=== PATIENT | female | born 1955 | race Caucasian/White ===

== ENCOUNTER → 2018-02-06 | Outpatient (CLI) | payer BC ==
--- NOTE | 2018-02-10 08:47 | MM ---
Reason for exam: screening (asymptomatic). Last mammogram was performed 2 years and 5 months ago. History: Patient is postmenopausal. Took estrogen for 1 year 10 months. Took progesterone for 1 year 10 months. Physical Findings: A clinical breast exam by your physician is recommended on an annual basis and results should be correlated with mammographic findings. MG Screening Mammo w CAD Bilateral CC and MLO view(s) were taken. Prior study comparison: September 01, 2015, bilateral MG screening mammo w CAD. January 07, 2014, bilateral MG screening mammo w CAD. There are scattered fibroglandular densities. Finding: There are typically benign stable circumscribed round masses in both breasts. No suspicious abnormality. No significant changes in finding since September 01, 2015 and January 07, 2014. ASSESSMENT: Benign, BI-RAD 2 RECOMMENDATION: Routine screening mammogram of both breasts in 1 year.
== END ==
LOC: RADMAMWWP 13:54
PROVIDERS: ATTEND Internal Medicine
DX: Z12.31 Encounter for screening mammogram for malignant neoplasm of breast (principal)
CPT/HCPCS: 77067

== ENCOUNTER → 2018-10-29 | Outpatient (CLI) | payer OTHER ==
--- NOTE | 2018-10-29 17:58 | XR ---
EXAMINATION TYPE: XR foot complete LT DATE OF EXAM: 10/29/2018 COMPARISON: NONE HISTORY: Pain in the toes TECHNIQUE: 3 views FINDINGS: Metatarsals appear intact. I see no fracture nor dislocation. The toes appear intact. Joint spaces are fairly normal. IMPRESSION: Negative left foot exam.
== END | disposition home or self-care (01) ==
LOC: RADXRMAIN 17:32
PROVIDERS: ATTEND Emergency Medicine
DX: S97.102A Crushing injury of unspecified left toe(s), initial encounter (principal); S91.205A Unspecified open wound of left lesser toe(s) with damage to nail, initial encounter

== ENCOUNTER → 2018-12-21 | Outpatient (CLI) | payer BC ==
--- NOTE | 2018-12-25 19:42 | ECHOF ---
Referral Reason:R01.1 heart murmur MEASUREMENTS -------- HEIGHT: 170.2 cm WEIGHT: 83.9 kg BP: RVIDd: 3.3 cm (< 3.3) IVSd: 1.2 cm (0.6 - 1.1) LVIDd: 3.4 cm (3.9 - 5.3) LVPWd: 1.2 cm (0.6 - 1.1) IVSs: 2.0 cm LVIDs: 1.6 cm LVPWs: 2.1 cm LAESV Index (A-L): 25.41 ml/m Ao Diam: 2.6 cm (2.0 - 3.7) AV Cusp: 1.5 cm (1.5 - 2.6) LA Diam: 3.7 cm (2.7 - 3.8) MV EXCURSION: 13.666 mm (> 18.000) MV EF SLOPE: 89 mm/s (70 - 150) EPSS: 0.3 cm MV E Austyn: 1.30 m/s MV DecT: 262 ms MV A Austyn: 0.79 m/s MV E/A Ratio: 1.65 AV maxP.42 mmHg AV meanP.91 mmHg RAP: 5.00 mmHg RVSP: 38.30 mmHg FINDINGS -------- Sinus rhythm. This was a technically adequate study. The left ventricular size is normal. There is mild concentric left ventricular hypertrophy. Overa ll left ventricular systolic function is normal with, an EF between 60 - 65 %. The diastolic fillin g pattern is normal for the age of the patient 20.87. The right ventricle is normal in size. Normal LA size by volume 22+/-6 ml/m2. The right atrial size is normal. Interatrial and interventricular septum intact. There is no evidence of aortic regurgitation. There is mild aortic stenosis present. Peak/mean gr adient across the Aortic Valve is 31.42mmHg / 18.91mmHg. Mild mitral regurgitation is present. Mild tricuspid regurgitation present. There is mild pulmonary hypertension. The right ventricular systolic pressure, as measured by Doppler, is 38.30mmHg. There is no pulmonic regurgitation present. The aortic root size is normal. Normal inferior vena cava with normal inspiratory collapse consistent with estimated right atrial pre ssure of 5 mmHg. There is no pericardial effusion. CONCLUSIONS -------- 1. Sinus rhythm. 2. This was a technically adequate study. 3. The left ventricular size is normal. 4. There is mild concentric left ventricular hypertrophy. 5. Overall left ventricular systolic function is normal with, an EF between 60 - 65 %. 6. The diastolic filling pattern is normal for the age of the patient 20.87 7. The right ventricle is normal in size. 8. Normal LA size by volume 22+/-6 ml/m2. 9. The right atrial size is normal. 10. Interatrial and interventricular septum intact. 11. There is no evidence of aortic regurgitation. 12. There is mild aortic stenosis present. 13. Peak/mean gradient across the Aortic Valve is 31.42mmHg / 18.91mmHg. 14. Mild mitral regurgitation is present. 15. Mild tricuspid regurgitation present. 16. There is mild pulmonary hypertension. 17. The right ventricular systolic pressure, as measured by Doppler, is 38.30mmHg. 18. There is no pulmonic regurgitation present. 19. The aortic root size is normal. 20. Normal inferior vena cava with normal inspiratory collapse consistent with estimated right atrial pressure of 5 mmHg. 21. There is no pericardial effusion. RECOVERER: Arianna Rider RDCS
== END | disposition home or self-care (01) ==
LOC: RADECHMAIN 16:12
PROVIDERS: ATTEND Internal Medicine
DX: Z53.9 Procedure and treatment not carried out, unspecified reason (principal)

== ENCOUNTER → 2020-10-16 | Outpatient (CLI) | payer BC ==
--- NOTE | 2020-10-17 11:02 | ECHOF ---
Referral Reason:R01.1 heart murmur MEASUREMENTS -------- HEIGHT: 170.2 cm WEIGHT: 87.1 kg BP: IVSd: 1.4 cm (0.6 - 1.1) LVIDd: 3.5 cm (3.9 - 5.3) LVPWd: 1.5 cm (0.6 - 1.1) IVSs: 1.5 cm LVIDs: 2.3 cm LVPWs: 1.8 cm LAESV Index (A-L): 28.92 ml/m Ao Diam: 2.5 cm (2.0 - 3.7) AV Cusp: 0.8 cm (1.5 - 2.6) LA Diam: 3.2 cm (2.7 - 3.8) MV EXCURSION: 14.967 mm (> 18.000) MV EF SLOPE: 45 mm/s (70 - 150) EPSS: 0.2 cm MV E Austyn: 0.66 m/s MV DecT: 267 ms MV A Austyn: 0.89 m/s MV E/A Ratio: 0.73 AV maxP.21 mmHg AV meanP.70 mmHg RAP: 5.00 mmHg RVSP: 32.02 mmHg FINDINGS -------- Sinus rhythm. This was a technically good study. The left ventricular size is normal. There is moderate concentric left ventricular hypertrophy. O verall left ventricular systolic function is normal with, an EF between 55 - 60 %. The diastolic fi lling pattern is normal for the age of the patient 11.39. The right ventricle is normal in size. Normal LA size by volume 22+/-6 ml/m2. The right atrial size is normal. There is cfmryrbg-vr-qpxhva aortic stenosis present. Peak/mean gradient across the Aortic Valve is 58.21mmHg / 32.70mmHg. Aortic valve is functionally bicuspid and is moderately thickened. The mitral valve leaflets are mildly thickened. Mild mitral regurgitation is present. The tricuspid valve appears structurally normal. Mild tricuspid regurgitation present. Right vent ricular systolic pressure is normal at < 35 mmHg. Trace/mild (physiologic) pulmonic regurgitation. The aortic root size is normal. There is no pericardial effusion. CONCLUSIONS -------- 1. There is moderate concentric left ventricular hypertrophy. 2. Overall left ventricular systolic function is normal with, an EF between 55 - 60 %. 3. Normal LA size by volume 22+/-6 ml/m2. 4. There is jxmnesqc-rp-tgddff aortic stenosis present. 5. Peak/mean gradient across the Aortic Valve is 58.21mmHg / 32.70mmHg. 6. Aortic valve is functionally bicuspid and is moderately thickened. 7. Mild mitral regurgitation is present. 8. Mild tricuspid regurgitation present. 9. Trace/mild (physiologic) pulmonic regurgitation. 10. There is no pericardial effusion. DESIGN ENGINEERING MANAGER: Latrice Parrish RDCS
== END | disposition home or self-care (01) ==
LOC: RADECHMAIN 13:57
PROVIDERS: ATTEND Internal Medicine
DX: I08.3 Combined rheumatic disorders of mitral, aortic and tricuspid valves (principal); I37.1 Nonrheumatic pulmonary valve insufficiency
CPT/HCPCS: 93306

== ENCOUNTER → 2021-02-16 | Outpatient (CLI) | payer BC | END | disposition home or self-care (01) | LOC: LABWHC1 12:58 | PROVIDERS: ATTEND Internal Medicine | DX: U07.1 COVID-19 (principal) | CPT/HCPCS: U0003; C9803; U0005 ==

== ENCOUNTER → 2023-08-28 | Outpatient (CLI) | payer MEDICARE ==
--- NOTE | 2023-08-28 17:50 | CA ---
Transthoracic Echo Report Name: Rashmi Martinez Age: 67 Gender: F : 1955 Exam Date: 08/28/2023 12:54 Exam Location: [facility] Ht (in): 67 Wt (lb): 204 Ordering Physician: Cyndi Blue MD Attending/Referring Phys: Branch Chief Tonia Benavides RDCS Procedure CPT: Indications: I350 NONRHEUMATIC AORTIC (VALVE) STENOSIS Cardiac Hx: Technical Quality: Good Contrast 1: Total Dose (mL): Contrast 2: Total Dose (mL): MEASUREMENTS (Male / Female) Normal Values 2D ECHO LV Diastolic Diameter PLAX 4.4 cm 4.2 - 5.9 / 3.9 - 5.3 cm LV Systolic Diameter PLAX 2.6 cm IVS Diastolic Thickness 1.4 cm 0.6 - 1.0 / 0.6 - 0.9 cm LVPW Diastolic Thickness 1.2 cm 0.6 - 1.0 / 0.6 - 0.9 cm LV Relative Wall Thickness 0.6 LVOT Diameter 2.1 cm LV Diastolic Volume MOD BP 120.4 cm??? 67 - 155 / 56 - 104 cm??? LV Systolic Volume MOD BP 39.5 cm??? 22 - 58 / 19 - 49 cm??? LV Ejection Fraction MOD BP 67.2 % >= 55 % LV Cardiac Index MOD BP 2821.1 cm???/min???m??? LV Diastolic Volume MOD 4C 93.6 cm??? LV Systolic Volume MOD 4C 36.5 cm??? LV Ejection Fraction MOD 4C 61.0 % LV Cardiac Index MOD 4C 1990.3 cm???/min???m??? LV Diastolic Length 4C 8.5 cm LV Systolic Length 4C 7.7 cm LV Diastolic Volume MOD 2C 151.9 cm??? LV Systolic Volume MOD 2C 37.3 cm??? LV Ejection Fraction MOD 2C 75.5 % LV Cardiac Index MOD 2C 3997.5 cm???/min???m??? LV Diastolic Length 2C 8.7 cm LV Systolic Length 2C 6.7 cm LA Volume 70.2 cm??? 18 - 58 / 22 - 52 cm??? LA Volume Index 33.1 cm???/m??? 16 - 28 cm???/m??? Ascending Aorta Diameter 3.9 cm DOPPLER AV Peak Velocity 425.1 cm/s AV Peak Gradient 72.3 mmHg AV Mean Velocity 303.6 cm/s AV Mean Gradient 41.7 mmHg AV Velocity Time Integral 100.8 cm LVOT Peak Velocity 108.1 cm/s LVOT Peak Gradient 4.7 mmHg LVOT Velocity Time Integral 25.5 cm LVOT Stroke Volume 88.2 cm??? LVOT Stroke Volume Index 43.2 ml/m??? LVOT Cardiac Index 3074.5 cm???/min???m??? AV Area Cont Eq vti 0.9 cm??? AV Area Cont Eq pk 0.9 cm??? MV Area PHT 3.6 cm??? Mitral E Point Velocity 93.9 cm/s Mitral A Point Velocity 88.8 cm/s Mitral E to A Ratio 1.1 MV Deceleration Time 213.4 ms TR Peak Velocity 304.5 cm/s TR Peak Gradient 37.1 mmHg PV Peak Velocity 106.7 cm/s PV Peak Gradient 4.6 mmHg FINDINGS Left Ventricle Left ventricular ejection fraction is estimated at 65-70 %. Moderately increased septal wall thickness. Mildly increased posterior wall thickness. Moderately increased left ventricular diastolic volume. No obvious regional wall motion abnormalities. Right Ventricle Normal right ventricular size and function. Right Atrium Normal right atrial size. Left Atrium Mildly increased left atrial volume. Mitral Valve Mitral valve thickened. No evidence for mitral valve prolapse. No mitral stenosis. Mild mitral regurgitation. Aortic Valve Bicuspid aortic valve. Severe aortic stenosis, mean gradient 47mmHg. No aortic regurgitation. Tricuspid Valve Structurally normal tricuspid valve. No tricuspid stenosis. Trace tricuspid regurgitation. Pulmonic Valve Structurally normal pulmonic valve. No pulmonic stenosis. Trace pulmonic regurgitation. Pericardium No pericardial effusion. Aorta Normal size aortic root and proximal ascending aorta. CONCLUSIONS Bicuspid aortic valve with severe aortic stenosis LVH with preserved systolic function Previewed by: Dr. Noel Saunders MD (Electronically Signed) Final Date: 28 August 2023 17:49
== END | disposition home or self-care (01) ==
LOC: RADECHMAIN 12:52
PROVIDERS: ATTEND Internal Medicine
DX: I35.0 Nonrheumatic aortic (valve) stenosis (principal)
CPT/HCPCS: 93306

== ENCOUNTER → 2024-01-31 | Outpatient (CLI) | payer MEDICARE ==
[2024-01-31 14:29] LABS: Amorphous Sediment,Urine Few /hpf; Appearance,Urine Cloudy (Clear); Bilirubin,Urine Negative (Negative); Blood,Urine Negative (Negative); Color,Urine Colorless; Glucose,Urine (UA) Negative (Negative); Ketones,Urine Negative (Negative); Leukocyte Esterase,Urine Negative (Negative); Nitrite,Urine Negative (Negative); PH, Urine 7.5 (5.0-8.0); Protein,Urine Negative (Negative); RBC,Urine 1 /hpf (0-5); Specific Gravity,Urine 1.017 (1.001-1.035); Squamous Epithelial Cell,Urine 1 /hpf (0-4); Urobilinogen,Urine <2.0 mg/dL (<2.0); WBC,Urine 1 /hpf (0-5)
[2024-01-31 22:46] LABS: Basophils # (A) 0.06 X 10*3/uL (0.00-0.10); Basophils % (A) 0.8 %; Eosinophils # (A) 0.15 X 10*3/uL (0.04-0.35); Eosinophils % (A) 1.9 %; HCT 44.5 % (37.2-46.3); HGB 14.5 g/dL (12.0-15.0); Lymphocytes # (A) 1.69 X 10*3/uL (0.90-5.00); Lymphocytes % (A) 21.9 %; MCH 29.1 pg (27.0-32.0); MCHC 32.6 g/dL (32.0-37.0); MCV 89.4 FL (80.0-97.0); Mean Platelet Volume 10.8 FL (9.5-12.2); Monocytes # (A) 0.61 X 10*3/uL (0.20-1.00); Monocytes % (A) 7.9 %; NRBC Per 100 WBC 0 X 10*3/uL (0.00-0.01); Neutrophils # (A) 5.19 X 10*3/uL (1.80-7.70); Neutrophils % (A) 67.2 %; Platelet Count 250 X 10*3/uL (140-440); RBC 4.98 X 10*6/uL (4.10-5.20); RDW 13.2 % (11.5-14.5); WBC 7.72 X 10*3/uL (4.50-10.00)
[2024-01-31 23:00] LABS: ALT 33 U/L (8-44); AST 33 U/L (13-35); Albumin 4.7 g/dL (3.8-4.9); Albumin/Globulin Ratio 1.74 Ratio (1.60-3.17); Alkaline Phosphatase 123 U/L (41-126); Bilirubin, Conjugated 0.26 mg/dL (0.20-0.40); Bilirubin,Unconjugated 0.64 mg/dL (0.20-1.00); Blood Urea Nitrogen 16.2 mg/dL (9.0-27.0); Carbon Dioxide 25.8 mmol/L (21.6-31.8); Chloride 103 mmol/L (96-109); Chol/HDL Ratio 2.48 Ratio; Globulin 2.7 g/dL (1.6-3.3); Glucose 88 mg/dL (70-110); LDL Cholesterol,Calculated 70.8 mg/dL (0.0-131.0); Potassium 4.2 mmol/L (3.5-5.5); Sodium 141 mmol/L (135-145); Total Bilirubin 0.9 mg/dL (0.3-1.2); Total Protein 7.4 g/dL (6.2-8.2)
[2024-01-31 23:41] LABS: INR 0.99 sec (0.93-1.11); Prothrombin Time 10.7 sec (9.9-11.9)
== END | disposition home or self-care (01) ==
LOC: LABWHC1 10:45
DX: I1A.0 Resistant hypertension (principal); I35.0 Nonrheumatic aortic (valve) stenosis; Q23.81 Bicuspid aortic valve
CPT/HCPCS: 36415; 80048; 80061; 80076; 81001; 83036; 83625; 85025; 85610; 86850; 86900; 86901; 87086

== ENCOUNTER → 2024-05-14 | Outpatient (CLI) | payer MEDICARE ==
--- NOTE | 2024-05-14 17:41 | US ---
EXAMINATION TYPE: US kidneys/renal and bladder DATE OF EXAM: 05/14/2024 COMPARISON: NONE CLINICAL INDICATION: Female, 68 years old with history of N18.32 CHRONIC KIDNEY DISEASE, STAGE 3B; CK D TECHNIQUE: Grayscale imaging of the bilateral kidneys and urinary bladder: FINDINGS: EXAM MEASUREMENTS: Right Kidney: 9.0x4.3x4.5 cm Left Kidney: 10.5x4.7x4.6 cm Right Kidney: wnl, no evidence for hydronephrosis, mass or renal calculus. Left Kidney: wnl, no evidence for hydronephrosis, mass or renal calculus. Bladder: wnl Bilateral Jets seen: Yes There is no evidence for hydronephrosis at this point in time. No nephrolithiasis is seen. No elisa s are identified. Cortical medullary differentiation is maintained bilaterally. No significant cortic al thinning identified. The urinary bladder is anechoic. exam limited by bowel and habitus IMPRESSION: No hydronephrosis or nephrolithiasis. [facility], , 05/14/2024 5:39 PM
== END | disposition home or self-care (01) ==
LOC: RADUSWWP 16:19
PROVIDERS: ATTEND Internal Medicine
DX: N18.32 Chronic kidney disease, stage 3b (principal)
CPT/HCPCS: 76770

== ENCOUNTER 2024-06-06 18:30 | Emergency (ER) | payer MEDICARE ==
--- NOTE | 2024-06-06 19:34 | XR ---
EXAMINATION TYPE: XR chest 2V DATE OF EXAM: 06/06/2024 7:30 PM COMPARISON: 05/15/2022 CLINICAL INDICATION: Female, 68 years old with history of cough: Shortness of breath TECHNIQUE: XR chest 2V views of the chest are obtained. FINDINGS: Scattered senescent parenchymal changes noted. Hyperinflation compatible with COPD. Patchy perihilar and basilar infiltrates with small effusions. Correlate for pneumonia. Heart size is stable. Mediastinal structures are stable and grossly unremarkable. No evidence for hilar prominence. Degenerative changes dorsal spine. IMPRESSION: 1. Patchy perihilar and basilar infiltrates with small effusions. Correlate for pneumonia. [facility], , 06/06/2024 7:32 PM
[2024-06-06] MEDS: BENZONATATE 100 MG CAP PO STA (19:35)
[2024-06-06] MEDS: ACETAMINOPHEN TAB 500 MG TAB PO STA (19:35)
[2024-06-06] MEDS: IBUPROFEN 800 MG TAB PO STA (19:35)
--- NOTE | 2024-06-06 20:03 | ED ---
URI HPI - General Chief Complaint: Upper Respiratory Infection Stated Complaint: Cold symptoms Time Seen by Provider: 06/06/24 19:20 Source: patient, RN notes reviewed, old records reviewed Mode of arrival: ambulatory Limitations: no limitations - History of Present Illness Initial Comments: This is a 68 female to the ER for evaluation this patient presents today for evaluation regards to cough congestion runny nose without fever. Patient has sick contacts including exposures to people with flu. No chest pain just feels unwell MD Complaint: fever, cough, sore throat, nasal congestion -: days(s) (7) Severity: moderate Consistency: constant, intermittent Worsens With: nothing Associated Symptoms: denies other symptoms Treatments Prior to Arrival: Acetaminophen - Related Data Home Medications Medication Instructions Recorded Confirmed Fish Oil/Dha/Epa [Fish Oil 1,200 1 tab PO DAILY 09/23/14 09/23/14 mg Fish Oil] Multivitamins, Thera [Theragran] 1 tab PO DAILY 09/23/14 09/23/14 PARoxetine [Paxil] 20 mg PO DAILY 09/23/14 09/23/14 Previous Rx's Medication Instructions Recorded Aspirin EC [Ecotrin] 325 mg PO DAILY #30 tablet. 08/06/13 Atorvastatin [Lipitor] 80 mg PO DAILY #30 tab 08/06/13 oxyCODONE HCL/ACETAMINOPHEN 1 each PO Q6HR PRN #30 tab 09/24/14 [Percocet 5-325 mg] Albuterol Sulfate [Proair 1 puff INHALATION TID PRN #1 each 06/06/24 Digihaler] Amoxic-Pot Clav 875-125Mg 1 tab PO Q12HR #20 tablet 06/06/24 [Augmentin 875-125] Benzonatate [Tessalon Perles] 100 mg PO TID PRN #15 capsule 06/06/24 Clindamycin [Cleocin] 450 mg PO Q6H #28 cap 06/06/24 Allergies Allergy/AdvReac Type Severity Reaction Status Date / Time No Known Allergies Allergy Verified 06/06/24 19:16 Review of Systems ROS Statement: Those systems with pertinent positive or pertinent negative responses have been documented in the HPI. ROS Other: All systems not noted in ROS Statement are negative. Past Medical History Past Medical History: CVA/TIA, Hyperlipidemia Additional Past Medical History / Comment(s): Depression History of Any Multi-Drug Resistant Organisms: None Reported Past Surgical History: No Surgical Hx Reported Additional Past Surgical History / Comment(s): open heart 02/20/24 Past Anesthesia/Blood Transfusion Reactions: Motion Sickness Additional Past Anesthesia/Blood Transfusion Reaction / Comment(s): never had sx Past Psychological History: Depression Smoking Status: Never smoker Past Alcohol Use History: Occasional Past Drug Use History: None Reported - Past Family History Father Family Medical History: Myocardial Infarction ([place]) Mother Family Medical History: Hypertension Additional Family Medical History / Comment(s): gallbladder removed General Exam Limitations: no limitations General appearance: alert, in no apparent distress Head exam: Present: atraumatic, normocephalic, normal inspection Eye exam: Present: normal appearance, PERRL, EOMI. Absent: scleral icterus, conjunctival injection, periorbital swelling ENT exam: Present: normal exam, mucous membranes moist Neck exam: Present: normal inspection. Absent: tenderness, meningismus, lymphadenopathy Respiratory exam: Present: normal lung sounds bilaterally. Absent: respiratory distress, wheezes, rales, rhonchi, stridor Cardiovascular Exam: Present: regular rate, normal rhythm, normal heart sounds. Absent: systolic murmur, diastolic murmur, rubs, gallop, clicks GI/Abdominal exam: Present: soft, normal bowel sounds. Absent: distended, tenderness, guarding, rebound, rigid Extremities exam: Present: normal inspection, full ROM, normal capillary refill. Absent: tenderness, pedal edema, joint swelling, calf tenderness Back exam: Present: normal inspection Neurological exam: Present: alert, oriented X3, CN II-XII intact Psychiatric exam: Present: normal affect, normal mood Skin exam: Present: warm, dry, intact, normal color. Absent: rash Course Vital Signs 06/06/24 06/06/24 06/06/24 19:16 20:39 20:49 Temperature 99.9 F H Pulse Rate 83 83 85 Respiratory 19 Rate Blood Pressure 169/87 O2 Sat by Pulse 93 L Oximetry 06/06/24 20:52 Temperature 98.3 F Pulse Rate 74 Respiratory 22 Rate Blood Pressure 154/89 O2 Sat by Pulse 92 L Oximetry - Reevaluation(s) Reevaluation #1: Medical records reviewed Reevaluation #2: Patient symptoms improved Reevaluation #3: Patient informed of results questions answered Reevaluation #4: Was pt. sent in by a medical professional or institution (MARTI Moon, FINANCIAL COORDINATOR, urgent care, hospital, or snf...) When possible be specific @ -no Did you speak to anyone other than the patient for history (EMS, parent, family, police, friend...)? What history was obtained from this source @ -no Did you review nursing and triage notes (agree or disagree)? Why? @ -agree Are old charts reviewed (outside hosp., previous admission, EMS record, old EKG, old radiological studies, urgent care reports/EKG's, snf records)? Report findings @ -yes Differential Diagnosis (chest pain, altered mental status, abdominal pain women, abdominal pain men, vaginal bleeding, weakness, fever, dyspnea, syncope, headache, dizziness, GI bleed, back pain, seizure, CVA, palpatations, mental health, musculoskeletal)? @ -prior EKG interpreted by me (3pts min.). @ -no X-rays interpreted by me (1pt min.). @ -yes n positive for pneumonia CT interpreted by me (1pt min.). @ -no U/S interpreted by me (1pt. min.). @ -no What testing was considered but not performed or refused? (CT, X-rays, U/S, labs)? Why? @ -none What meds were considered but not given or refused? Why? @ -none Did you discuss the management of the patient with other professionals (rayray gandhi i.e. MARTI Moon, FINANCIAL COORDINATOR, lab, RT, psych nurse, child protective services social worker, molded goods controls operator, teacher, information technology officer, ed case manager)? Give summary @ -no Was smoking cessation discussed for >3mins.? @ -no Was critical care preformed (if so, how long)? @ -no Were there social determinants of health that impacted care today? How? (Homelessness, low income, unemployed, alcoholism, drug addiction, transportation, low edu. Level, literacy, decrease access to med. care, penitentiary, rehab)? @ -none Was there de-escalation of care discussed even if they declined (Discuss DNR or withdrawal of care, Hospice)? DNR status @ -no What co-morbidities impacted this encounter? (DM, HTN, Smoking, COPD, CAD, Cancer, CVA, ARF, Chemo, Hep., AIDS, mental health diagnosis, sleep apnea, morbid obesity)? @ -none Was patient admitted / discharged? Hospital course, mention meds given and route, prescriptions, significant lab abnormalities, going to OR and other pertinent info. @ -This is a 68-year-old female to the ER for evaluation of upper respiratory symptoms. Patient has positive flu positive pneumonia, patient feels well and can be discharged home Discharge Undiagnosed new problem with uncertain prognosis? @ -no Drug Therapy requiring intensive monitoring for toxicity (Heparin, Nitro, Insulin, Cardizem)? @ -no Were any procedures done? @ -no Diagnosis/symptom? @ -Flu with pneumonia Acute, or Chronic, or Acute on Chronic? @ -Acute Uncomplicated (without systemic symptoms) or Complicated (systemic symptoms)? @ -Complicated Side effects of treatment? @ -no Exacerbation, Progression, or Severe Exacerbation? @ -exacerbation Poses a threat to life or bodily function? How? (Chest pain, [place], [place], pneumonia, PE, COPD, DKA, ARF, appy, cholecystitis, CVA, Diverticulitis, Homicidal, Suicidal, threat to staff... and all critical care pts) @ -yes extremes of age Reevaluation #5: Differential Dyspnea: Coronary syndrome, arrhythmia, tamponade, asthma, COPD, pulmonary embolism, pneumonia, pneumothorax, pulmonary effusion, anaphylaxis, diabetic ketoacidosis, flailed chest, pulmonary contusion, diaphragmatic rupture, anemia, neuromuscular, this is not meant to be an all-inclusive list. Medical Decision Making - Medical Decision Making 68 female to the ER for evaluation, patient has cough congestion found to have flu and pneumonia. Patient will be discharged home in stable condition return if symptoms worsen - Lab Data Lab Results 06/06/24 Range/Units 19:34 Influenza Type A (PCR) Detected A (Not Detectd) Influenza Type B (PCR) Not Detected (Not Detectd) RSV (PCR) Not Detected (Not Detectd) SARS-CoV-2 (PCR) Not Detected (Not Detectd) - Radiology Data Radiology results: report reviewed (Chest x-ray shows evidence of pneumonia), image reviewed Disposition Clinical Impression: Acute upper respiratory infection, Fever, Pneumonia, Influenza Disposition: HOME SELF-CARE Condition: Fair Instructions (If sedation given, give patient instructions): Influenza (ED), Community Acquired Pneumonia (ED) Prescriptions: Amoxic-Pot Clav 875-125Mg [Augmentin 875-125] 1 tab PO Q12HR #20 tablet Clindamycin [Cleocin] 450 mg PO Q6H #28 cap Albuterol Sulfate [Proair Digihaler] 1 puff INHALATION TID PRN #1 each PRN Reason: Shortness Of Breath Benzonatate [Tessalon Perles] 100 mg PO TID PRN #15 capsule PRN Reason: Cough Is patient prescribed a controlled substance at d/c from ED?: No Referrals: Cyndi Blue MD [Primary Care Provider] - 1-2 days Time of Disposition: 20:00
[2024-06-06] MEDS: AMOXIC-POT CLAV 875-125MG 1 EACH TAB PO STA (20:13)
[2024-06-06 20:35] LABS: Influenza A Detected (Not Detectd); Influenza B Not Detected (Not Detectd); RSV Not Detected (Not Detectd)
[2024-06-06] MEDS: IPRATROPIUM-ALBUTEROL 3 ML NEB INHALATION STA (20:37)
[2024-06-06] MEDS: CLINDAMYCIN 150 MG CAP PO STA (20:50)
[2024-06-06 20:54] VITALS: BP 154/89; PULSE 74; RESP 22; TEMP 98.3
== END 2024-06-06 20:52 | disposition home or self-care (01) ==
LOC: EC 18:30
DX: J06.9 Acute upper respiratory infection, unspecified (principal); R50.9 Fever, unspecified; J11.00 Influenza due to unidentified influenza virus with unspecified type of pneumonia
CPT/HCPCS: 71046; 87636; 94640; 99284

== ENCOUNTER → 2024-09-21 | Outpatient (CLI) | payer MEDICARE ==
[2024-09-21 21:11] LABS: Anion Gap 15.40 mmol/L (4.00-12.00); BUN/Creat Ratio 14.18 Ratio (12.00-20.00); Blood Urea Nitrogen 15.6 mg/dL (9.0-27.0); Calcium 9.5 mg/dL (8.7-10.3); Carbon Dioxide 24.6 mmol/L (21.6-31.8); Chloride 102 mmol/L (96-109); Glucose 85 mg/dL (70-110); Potassium 4.7 mmol/L (3.5-5.5); Sodium 142 mmol/L (135-145)
[2024-09-21 22:45] LABS: NT-Pro-B-Type Natriuretic Pept 649 pg/mL (0-125)
== END | disposition home or self-care (01) ==
LOC: LABWHC1 13:05
PROVIDERS: ATTEND Internal Medicine Cardiovascular Disease
DX: I50.32 Chronic diastolic (congestive) heart failure (principal); I42.8 Other cardiomyopathies; I50.9 Heart failure, unspecified; I51.9 Heart disease, unspecified; D50.9 Iron deficiency anemia, unspecified; D64.9 Anemia, unspecified; D86.0 Sarcoidosis of lung; D86.85 Sarcoid myocarditis; R73.09 Other abnormal glucose
CPT/HCPCS: 36415; 80048; 83880